=== PATIENT | male | born 1975 | race Caucasian/White ===

== ENCOUNTER → 2019-12-15 | Outpatient (CLI) | payer MEDICAID ==
[~2019-12-15] MED LIST: CEPH500C PO; HEARTBURN MED; HYDR-3583 PO; MPR22TI TP
== END ==
LOC: LAB 13:18
PROVIDERS: ATTEND Nurse Practitioner
DX: Z11.3 Encounter for screening for infections with a predominantly sexual mode of transmission (principal); Z53.8 Procedure and treatment not carried out for other reasons

== ENCOUNTER 2021-12-12 08:42 | Observation (INO) | payer MEDICAID ==
[~2021-12-12] VITALS: Ht 185 cm; Wt 95.0 kg
[2021-12-12] MEDS ORDERED: NALOXONE 2 MG/2 ML (NARCAN) SYR IV ONE ×2 (08:44→09:15)
--- NOTE | 2021-12-12 09:13 | ED General ---
General Stated Complaint: UNRESPONSIVE Source of Information: EMS Exam Limitations: Intoxication History of Present Illness Date Seen by Provider: Dec 12, 2021 Time Seen by Provider: 08:55 Initial Comments Patient is a 46-year-old male who presents to the emergency room by EMS chief complaint unresponsiveness. Reportedly girlfriend woke to find him sitting by the bed unresponsive, sonorous breath sounds. She was throwing water on him and could not get him to wake up. EMS responded, gave him 4 mg of Narcan, he had improvement in his respiratory effort but no improvement in mental status. It was difficult to get an IV therefore an IO was placed to the left tibia. Patient did respond to this noxious stimulus with sitting up and eyes opening but quickly became poorly responsive again with slow respiratory effort. No outward signs of trauma, pupils are 2-3 and reactive. Patient maintained on nasal cannula with a nasal trumpet in place sats 99%. Review of systems unobtainable secondary to the patient's unresponsive state Timing/Duration: 1 Hour Severity: Severe Allergies and Home Medications Allergies Coded Allergies: morphine (Unverified Allergy, Intermediate, itching, 06/26/11) Patient Home Medication List Home Medication List Reviewed: Yes Cephalexin Monohydrate (Cephalexin) 500 Mg Capsule, 1 EACH PO TID, (Reported) Entered as Reported by: KATHI MEDINA on 06/29/11 161 Hydrocodone Bit/Acetaminophen (Lortab 5 Mg) 1 Tab Tab, 1-2 EA PO Q4HR PRN, (Reported) Entered as Reported by: KATHI MEDINA on 06/29/11 1614 Mupirocin (Mupirocin Ointment) 22 Gm Tube, 0 TP DAILY, (Reported) Entered as Reported by: KATHI MEDINA on 06/29/11 1614 [Heartburn Med] , (Reported) Entered as Reported by: ROBERTH PAZ on 06/24/11 1712 Review of Systems Review of Systems Constitutional: see HPI Unable to obtain secondary to patient's unresponsive state All Other Systems Reviewed Negative Unless Noted: Yes Past Tituxsf-Jhekyj-Jxvdvi Hx Past Medical History Reproductive Disorders: No Physical Exam Vital Signs Vital Signs - First Documented 12/12/21 08:49 Temp 34.4 Pulse 92 Resp 10 B/P (MAP) 116/92 (100) Pulse Ox 96 O2 Delivery Nasal Cannula O2 Flow Rate 4.00 Capillary Refill : Height, Weight, BMI Height: '" Weight: lbs. oz. kg; BMI Method: General Appearance: Other (unresponisive) Eyes: Bilateral Eye Other (Roving gaze when I open his eyelids bilaterally right pupil is very minimally smaller than the left they are about 2 mm. Equally responsive) HEENT: TMs Normal, Other (Nasal trumpet in place left nare) Neck: Normal Inspection Respiratory: Lungs Clear, Normal Breath Sounds, No Accessory Muscle Use, No Respiratory Distress Cardiovascular: Regular Rate, Rhythm, Normal Peripheral Pulses Gastrointestinal: Soft, Other (Nondistended) Extremity: Normal Inspection, No Pedal Edema Neurologic/Psychiatric: Other (Unresponsive but does grimace and try to pull away to deep pain) Skin: Normal Color, Warm/Dry, Tattoos/Piercings (multiple tattoos) Focused Exam Lactate Level 12/12/21 11:30: Lactic Acid Level Laboratory Tests Test 12/12/21 11:30 Progress/Results/Core Measures Suspected Sepsis SIRS Temperature: Pulse: Respiratory Rate: Laboratory Tests 12/12/21 09:25: White Blood Count 17.1H Blood Pressure / Mean: 12/12/21 11:30: Laboratory Tests 12/12/21 09:25: Creatinine 2.33H, INR Comment 1.0, Platelet Count 302, Total Bilirubin 1.3H Results/Orders Lab Results Laboratory Tests Test 12/12/21 09:10 12/12/21 09:25 12/12/21 11:30 12/12/21 11:36 Range/Units Urine Opiates Screen NEGATIVE NEGATIVE Urine Oxycodone Screen NEGATIVE NEGATIVE Urine Methadone Screen NEGATIVE NEGATIVE Urine Propoxyphene Screen NEGATIVE NEGATIVE Urine Barbiturates Screen NEGATIVE NEGATIVE Ur Tricyclic Antidepressants Screen NEGATIVE NEGATIVE Urine Phencyclidine Screen NEGATIVE NEGATIVE Urine Amphetamines Screen POSITIVE H NEGATIVE Urine Methamphetamines Screen POSITIVE H NEGATIVE Urine Benzodiazepines Screen NEGATIVE NEGATIVE Urine Cocaine Screen NEGATIVE NEGATIVE Urine Cannabinoids Screen NEGATIVE NEGATIVE White Blood Count 17.1 H 4.3-11.0 10^3/uL Red Blood Count 5.88 H 4.30-5.52 10^6/uL Hemoglobin 15.5 13.3-17.7 g/dL Hematocrit 50 40-54 % Mean Corpuscular Volume 85 80-99 fL Mean Corpuscular Hemoglobin 26 25-34 pg Mean Corpuscular Hemoglobin Concent 31 L 32-36 g/dL Red Cell Distribution Width 14.6 H 10.0-14.5 % Platelet Count 302 130-400 10^3/uL Mean Platelet Volume 9.3 9.0-12.2 fL Immature Granulocyte % (Auto) 1 % Neutrophils (%) (Auto) 87 H 42-75 % Lymphocytes (%) (Auto) 5 L 12-44 % Monocytes (%) (Auto) 7 0-12 % Eosinophils (%) (Auto) 0 0-10 % Basophils (%) (Auto) 0 0-10 % Neutrophils # (Auto) 14.8 H 1.8-7.8 10^3/uL Lymphocytes # (Auto) 0.9 L 1.0-4.0 10^3/uL Monocytes # (Auto) 1.1 H 0.0-1.0 10^3/uL Eosinophils # (Auto) 0.1 0.0-0.3 10^3/uL Basophils # (Auto) 0.0 0.0-0.1 10^3/uL Immature Granulocyte # (Auto) 0.2 H 0.0-0.1 10^3/uL Neutrophils % (Manual) 88 % Lymphocytes % (Manual) 7 % Monocytes % (Manual) 3 % Band Neutrophils 2 % Blood Morphology Comment NORMAL Prothrombin Time 13.1 12.2-14.7 SEC INR Comment 1.0 0.8-1.4 Activated Partial Thromboplast Time 24 24-35 SEC Sodium Level 140 135-145 MMOL/L Potassium Level 4.0 3.6-5.0 MMOL/L Chloride Level 101 98-107 MMOL/L Carbon Dioxide Level 27 21-32 MMOL/L Anion Gap 12 5-14 MMOL/L Blood Urea Nitrogen 18 7-18 MG/DL Creatinine 2.33 H 0.60-1.30 MG/DL Estimat Glomerular Filtration Rate 34 BUN/Creatinine Ratio 8 Glucose Level 105 70-105 MG/DL Calcium Level 9.7 8.5-10.1 MG/DL Corrected Calcium 9.7 8.5-10.1 MG/DL Total Bilirubin 1.3 H 0.1-1.0 MG/DL Aspartate Amino Transf (AST/SGOT) 663 H 5-34 U/L Alanine Aminotransferase (ALT/SGPT) 545 H 0-55 U/L Alkaline Phosphatase 80 40-136 U/L Total Protein 6.9 6.4-8.2 GM/DL Albumin 4.0 3.2-4.5 GM/DL Salicylates Level < 5.0 L 5.0-20.0 MG/DL Acetaminophen Level < 10 L 10-30 UG/ML Serum Alcohol < 10 <10 MG/DL My Orders Orders - LAURA GIRARD MD Ed Iv/Invasive Line Start (12/12/21 09:07) Cbc With Automated Diff (12/12/21 09:07) Comprehensive Metabolic Panel (12/12/21 09:07) Salicylate (12/12/21 09:07) Acetaminophen (12/12/21 09:07) Alcohol (12/12/21 09:07) Drug Screen Stat (Urine) (12/12/21 09:07) Ekg Tracing (12/12/21 09:07) Chest 1 View, Ap/Pa Only (12/12/21 09:07) Ct Head Wo (12/12/21 09:07) Naloxone Injection (Narcan Injection) (12/12/21 09:15) Ns Iv 1000 Ml (Sodium Chloride 0.9%) (12/12/21 09:15) Manual Differential (12/12/21 09:25) Ns Iv 1000 Ml (Sodium Chloride 0.9%) (12/12/21 10:00) Lactated Ringers (Lr 1000 Ml Iv Solution (12/12/21 10:15) Partial Thromboplastin Time (12/12/21 11:19) Protime With Inr (12/12/21 11:19) Ammonia (12/12/21 11:19) Blood Culture (12/12/21 11:19) Lactic Acid Analyzer (12/12/21 11:19) Ed Admission (Communication) (12/12/21 11:29) Arterial Blood Gas (12/12/21 11:37) Medications Given in ED Current Medications Medications Dose Ordered Sig/Curtis Route Start Time Stop Time Status Last Admin Dose Admin Naloxone HCl 4 mg ONCE ONCE IV 12/12/21 09:15 12/12/21 09:16 DC 12/12/21 09:10 4 MG Vital Signs/I&O 12/12/21 12/12/21 08:49 09:25 Temp 34.4 Pulse 92 Resp 10 B/P (MAP) 116/92 (100) Pulse Ox 96 99 O2 Delivery Nasal Cannula Nasal Cannula O2 Flow Rate 4.00 4.00 Capillary Refill : Progress Note #1: Time: 11:28 Progress Note Discussed with Dr. Martines, advised him that some work-up is still pending including blood cultures, lactic, coags blood gas and ammonia level. Will admit to the ICU for monitoring. Progress Note #2: Time: 11:45 Progress Note A resin mixer called to inquire about the status of Mr Taveras and wanted to inform us that he may be shortly under investigation for fentanyl laced drugs. This could explain his unresponsive state, however, he is not positive for opiates at this time. Patient remains stable - 93% on #L per NC. Good BP, not tachy. Bear hugger on to help with temp. Rouses to vigorous stimuli. will briefly open eyes. has not been verbal. seems to maybe localize painful stimuli. not just withdraw from. ECG Initial ECG Impression Date: Dec 12, 2021 Initial ECG Impression Time: 08:48 Initial ECG Rate: 90 Initial ECG Rhythm: Normal Sinus Initial ECG Intervals NC interval 121 QRS 100 QTc 470 RSR prime in leads V1/V2, consider right bundle branch block. No ST segment elevation or depression or ectopy is noted Initial ECG Impression: Normal Diagnostic Imaging Diagonstic Imaging: Xray Plain Films/CT/US/NM/MRI: chest Comments [facility] [place], [place] NAME: YUAN TAVERAS [facility] REC#: [id number] PT STATUS: REG ER : 1975 PHYSICIAN: LAURA GIRARD MD ADMIT DATE: 12/12/21/ER Draft Date of Exam:12/12/21 CHEST 1 VIEW, AP/PA ONLY INDICATION: Overdose. TIME OF EXAM: 10:01 AM Correlation is made with prior chest 06/25/2011. FINDINGS: Heart size is stable. The lungs are clear. No infiltrates are seen. There is no effusion or pneumothorax. IMPRESSION: No acute cardiopulmonary process is detected. Dictated on workstation # [id number] Dict: 12/12/21 1012 Trans: 12/12/21 1014 [id number] Interpreted by: WENDY BARRERA MD Electronically signed by: Jolly Imaging: CT Plain Films/CT/US/NM/MRI: head Comments [facility] [place] [place] NAME: YUAN TAVERAS [facility] REC#: [id number] PT STATUS: REG ER : 1975 PHYSICIAN: LAURA GIRARD MD ADMIT DATE: 12/12/21/ER Signed Date of Exam:12/12/21 CT HEAD WO PROCEDURE: CT head without contrast. TECHNIQUE: Multiple contiguous axial images were obtained through the brain without the use of intravenous contrast. Auto Exposure Controls were utilized during the CT exam to meet ALARA standards for radiation dose reduction. INDICATION: Unresponsiveness. COMPARISON: 06/24/2011. FINDINGS: The ventricles and sulci are within normal limits. There is no hydrocephalus. There is no midline shift. There is no mass, hemorrhage, or extra-axial fluid collection. The calvarium is intact. There is some mucosal thickening in the right maxillary sinus. The remaining sinuses and mastoid air cells are clear. IMPRESSION: No acute intracranial abnormality. Mild right maxillary sinus disease. Dictated by: Dictated on workstation # [id number] Dict: 12/12/21 1043 Trans: 12/12/21 1058 [id number] Interpreted by: EH SOSA MD Electronically signed by: EH SOSA MD 12/12/21 1058 Departure Communication (Admissions) Time/Spoke to Admitting Phy: 11:[address] Martines Impression Primary Impression: Unresponsive state Additional Impression: Methamphetamine intoxication Disposition: ADMITTED INPATIENT Condition: Stable Admissions Decision to Admit Reason: Admit from ER (General) Decision to Admit/Date: Dec 12, 2021 Time/Decision to Admit Time: 11:28 Departure-Patient Inst. Referrals: NO,LOCAL PHYSICIAN (PCP/Family) Primary Care Physician LAURA GIRARD MD Dec 12, 2021 09:13
[2021-12-12] MEDS ORDERED: NS IV 1000 ML 1,000 ML IV SCH ×2 (09:15→10:00)
[2021-12-12 09:39] LABS: BASOPHILS % (AUTO) 0 % (0-10); EOSINOPHILS # (AUTO) 0.1 10^3/uL (0.0-0.3); EOSINOPHILS % (AUTO) 0 % (0-10); HEMATOCRIT 50 % (40-54); HEMOGLOBIN 15.5 g/dL (13.3-17.7); LYMPHOCYTES # (AUTO) 0.9 10^3/uL (1.0-4.0); LYMPHOCYTES % (AUTO) 5 % (12-44); MEAN CORPUSCULAR HEMOGLOBIN 26 pg (25-34); MEAN CORPUSCULAR HGB CONC 31 g/dL (32-36); MEAN CORPUSCULAR VOLUME 85 fL (80-99); MEAN PLATELET VOLUME 9.3 fL (9.0-12.2); MONOCYTES # (AUTO) 1.1 10^3/uL (0.0-1.0); MONOCYTES % (AUTO) 7 % (0-12); NEUTROPHILS # (AUTO) 14.8 10^3/uL (1.8-7.8); NEUTROPHILS % (AUTO) 87 % (42-75); PLATELET COUNT 302 10^3/uL (130-400); WHITE BLOOD COUNT 17.1 10^3/uL (4.3-11.0)
[2021-12-12 09:39] LABS: AMPHETAMINE SCREEN, URINE POSITIVE (NEGATIVE); BENZODIAZEPINES SCREEN URINE NEGATIVE (NEGATIVE); COCAINE SCREEN URINE NEGATIVE (NEGATIVE); METHAMPHETAMINE SCREEN URINE S POSITIVE (NEGATIVE)
[2021-12-12 09:40] LABS: BARBITURATE SCREEN URINE NEGATIVE (NEGATIVE); CANNABINOID SCREEN, URINE NEGATIVE (NEGATIVE); METHADONE STAT NEGATIVE (NEGATIVE); OPIATE SCREEN URINE NEGATIVE (NEGATIVE); OXYCODONE STAT NEGATIVE (NEGATIVE); PROPOXYPHENE STAT NEGATIVE (NEGATIVE); TRICYCLIC ANTIDEPRESSANTS SCRE NEGATIVE (NEGATIVE)
[2021-12-12 09:45] LABS: CHLORIDE 101 MMOL/L (98-107); SODIUM 140 MMOL/L (135-145)
[2021-12-12 09:46] LABS: CALCIUM 9.7 MG/DL (8.5-10.1)
[2021-12-12 09:48] LABS: GLUCOSE 105 MG/DL (70-105); TOTAL PROTEIN 6.9 GM/DL (6.4-8.2)
[2021-12-12 09:49] LABS: BILIRUBIN,TOTAL 1.3 MG/DL (0.1-1.0); CARBON DIOXIDE 27 MMOL/L (21-32)
[2021-12-12 09:51] LABS: ALKALINE PHOSPHATASE 80 U/L (40-136); CREATININE SERUM 2.33 MG/DL (0.60-1.30); GFR ESTIMATED 34
[2021-12-12 09:53] LABS: ACETAMINOPHEN < 10 UG/ML (10-30); BUN/CREATININE RATIO 8
[2021-12-12 09:54] LABS: SALICYLATE < 5.0 MG/DL (5.0-20.0)
[2021-12-12 09:55] LABS: ALANINE AMINOTRANSFERASE 545 U/L (0-55)
[2021-12-12 10:07] LABS: BAND NEUTROPHILS 2 %; LYMPHOCYTES % (MANUAL) 7 %; MONOCYTES % (MANUAL) 3 %; NEUTROPHILS % (MANUAL) 88 %; RBC MORPH NORMAL
[2021-12-12] MEDS ORDERED: LACTATED RINGERS 1,000 ML IV SCH (10:15)
--- NOTE | 2021-12-12 10:15 | Diagnostic Imaging Report ---
INDICATION: Overdose. TIME OF EXAM: 10:01 AM Correlation is made with prior chest 06/25/2011. FINDINGS: Heart size is stable. The lungs are clear. No infiltrates are seen. There is no effusion or pneumothorax. IMPRESSION: No acute cardiopulmonary process is detected. Dictated by: Dictated on workstation # [id number]
--- NOTE | 2021-12-12 10:46 | Diagnostic Imaging Report ---
PROCEDURE: CT head without contrast. TECHNIQUE: Multiple contiguous axial images were obtained through the brain without the use of intravenous contrast. Auto Exposure Controls were utilized during the CT exam to meet ALARA standards for radiation dose reduction. INDICATION: Unresponsiveness. COMPARISON: 06/24/2011. FINDINGS: The ventricles and sulci are within normal limits. There is no hydrocephalus. There is no midline shift. There is no mass, hemorrhage, or extra-axial fluid collection. The calvarium is intact. There is some mucosal thickening in the right maxillary sinus. The remaining sinuses and mastoid air cells are clear. IMPRESSION: No acute intracranial abnormality. Mild right maxillary sinus disease. Dictated by: Dictated on workstation # [id number]
[2021-12-12 11:34] LABS: PROTHROMBIN TIME PATIENT 13.1 SEC (12.2-14.7)
[2021-12-12 11:43] LABS: ABG BASE EXCESS 1.5 MMOL/L (-2.5-2.5); ABG OXYGEN SATURATION 95 % (94-100); ABG PCO2 55 MMHG (35-45); ABG PO2 82 MMHG (79-93)
[2021-12-12 11:48] LABS: ABG PH 7.31 (7.37-7.43); ALLENS TEST YES-POS; INSPIRED O2 3 L; PATIENT TEMP 97; VENTILATOR NO
[2021-12-12] MEDS ORDERED: NALOXONE 0.4 MG/ML 1 ML (NARCAN) VIAL ONE (12:20)
[2021-12-12] MEDS ORDERED: NALOXONE 2 MG/2 ML (NARCAN) SYR ONE (12:22)
[2021-12-12] MEDS ORDERED: LORazepam INJ 2 MG/ML (ATIVAN) VIAL IVP PRN (15:00)
[2021-12-12] MEDS ORDERED: ONDANSETRON 4 MG/2 ML (SDV) Z0FRAN IVP PRN (15:00)
[2021-12-12] MEDS ORDERED: HALOPERIDOL 5 MG/ML (HALDOL) VIAL IM PRN (15:00)
[2021-12-12] MEDS: LACTATED RINGERS 1,000 ML IV SCH ×2 (15:30→23:20)
[2021-12-12 15:34] VITALS: BP 119/84
[2021-12-12] MEDS ORDERED: RT-ALBUTEROL SULF 2.5 MG/3 ML PRE-MIX VIAL INH PRN (15:45)
[2021-12-12] MEDS ORDERED: SUCR1TAB36 PO (15:47)
--- NOTE | 2021-12-12 17:38 | Tele-ICU Consult ---
History of Present Illness History of Present Illness Date Seen by Provider: Dec 12, 2021 Time Seen by Provider: 17:32 Date of Admission 12/12/21 History of Present Illness He is a 46-year-old male with unknown past medical history was apparently found unresponsive by his girlfriend with a sonorous breathing sounds. EMS was called and they gave him Narcan 4 mg IV with minimal improvement initially and no significant mental status improvement. Apparently it was a difficult to get an IV axis hence an IO was placed in the left anterior at which time with this noxious stimuli he was sitting up on the ice opening but quickly became fully responsive. However his respiratory status is stable. His urine toxicology positive for amphetamines and methamphetamines. He is admitted to the intensive care unit for close monitoring. His creatinine is elevated. He is being given IV fluids. There is no external evidence of for trauma present. Reportedly his pupils were about 2-3 mm and reactive. I have reviewed with the LONG TERM CARE PHARMACIST and also made a video visit. Apparently when he is arousable he answers questions appropriately but falls back quickly to sleep. Allergies and Home Medications Allergies Coded Allergies: morphine (Unverified Allergy, Intermediate, itching, 06/26/11) Home Medications Cephalexin Monohydrate 500 Mg Capsule, 1 EACH PO TID, (Reported) Hydrocodone Bit/Acetaminophen 1 Tab Tab, 1-2 EA PO Q4HR PRN, (Reported) Mupirocin 22 Gm Tube, 0 TP DAILY, (Reported) APPLY TO AFFECTED AREA(S) Sucralfate 1 Gm Tablet, 1 GM PO DAILY, (Reported) Past Medical/Social/Family Hx Patient Social History Tobacco Use?: No Smoking Status: Unknown if Ever Smoked Use of E-Cig and/or Vaping dev: Yes E-Cig and/or Vaping Freq: Current Someday User, Light User Substance use?: Yes Substance type: Amphetamines, Methamphetamine Alcohol Use?: Yes Alcohol type: Hard Liquor Alcohol Frequency: Couple times a week Pt stated abuse/neglect: Unable to obtain Immunizations Up To Date Influenza Vaccine Up-to-Date: No; Not Current Current Status Advance Directives: No Communicates: Verbally Primary Language: Iraqi Preferred Spoken Language: Iraqi Is interpretation needed?: No Review of Systems Constitutional: see HPI Other ROS PER RN Focused Exam Lactate Level 12/12/21 11:30: Lactic Acid Level 0.80 Height, Weight, BMI Height: '" Weight: lbs. oz. kg; 27.52 BMI Method: Exam Exam Patient acknowledged, consented, and participated in this virtual visit which was conducted using real time audio/video Vital Signs Date Time Temp Pulse Resp B/P (MAP) Pulse Ox O2 Delivery O2 Flow Rate FiO2 12/12/21 17:00 89 15 125/82 94 Nasal Cannula 3.00 12/12/21 16:00 14 114/76 96 Nasal Cannula 3.00 12/12/21 15:45 35.7 12/12/21 15:41 Nasal Cannula 4.00 12/12/21 15:34 34.4 87 94 12/12/21 15:00 84 12 125/84 96 Nasal Cannula 3.00 12/12/21 14:47 87 12/12/21 14:28 86 14 119/84 94 Nasal Cannula 3.00 12/12/21 09:25 99 Nasal Cannula 4.00 12/12/21 08:49 34.4 92 10 116/92 (100) 96 Nasal Cannula 4.00 Height & Weight Height: '" Weight: lbs. oz. kg; 27.52 BMI Method: General Appearance: Other (unresponisive) HEENT: TMs Normal, Other (Nasal trumpet in place left nare) Neck: Normal Inspection Respiratory: Lungs Clear, Normal Breath Sounds, No Accessory Muscle Use, No Respiratory Distress Cardiovascular: Regular Rate, Rhythm, Normal Peripheral Pulses Capillary Refill: Less Than 3 Seconds Extremity: Normal Inspection, No Pedal Edema Neurologic/Psychiatric: Other (Unresponsive but does grimace and try to pull away to deep pain) Skin: Normal Color, Warm/Dry, Tattoos/Piercings (multiple tattoos) Other comments PE PER RN Results Lab Laboratory Tests 12/12/21 09:25 Assessment/Plan Assessment/Plan 1. Altered mental status most probably due to amphetamines and methamphetamine overdose. 2. Acute kidney injury due to dehydration. 3. Rule out any rhabdomyolysis. Recommendations 1. Continue IV fluids with LR 2. We will get a CPK level 3. Continue to monitor his mental status, BUN/creatinine. 4. CT head is negative. 5. DVT prophylaxis and ulcer prophylaxis. Critical Care: Critically Ill Patient Time spent with patient (mins): 30 KYREE BARTLETT MD Dec 12, 2021 17:38
[2021-12-12] MEDS ORDERED: ENOXAPARIN 40 MG/0.4 ML (LOVENOX) SYR SC SCH (17:45)
--- NOTE | 2021-12-12 21:22 | History & Physical-Hospitalist ---
History of Present Illness HPI/Chief Complaint Rufus Taveras is a 46 year old male who presented with altered mental status. His girlfriend found him unresponsive at home. He was unable to provide any history upon arrival. He was given Narcan with minimal response. Upon my exam, he is awake and alert. He does not remember how he ended up in the hospital. He reports that he has been in his normal state of health. He denies chest pain and shortness of breath. He has no complaints. Source: patient Exam Limitations: no limitations Date Seen 12/12/21 Time Seen by a Provider: 19:30 Attending Physician Mikala Rahman MD PCP No,Local Physician Referring Physician Date of Admission Dec 12, 2021 at 11:29 Home Medications & Allergies Home Medications Reviewed patient Home Medication Reconciliation performed by pharmacy medication reconciliations heating repair technician and/or nursing. Patients Allergies have been reviewed. Allergies Allergies Coded Allergies morphine (Unverified Allergy, Intermediate, itching, 06/26/11) Past Iptbpvt-Axsdia-Reptqg Hx Patient Social History Tobacco Use?: No Smoking Status: Unknown if Ever Smoked Use of E-Cig and/or Vaping dev: Yes Use of E-Cig and/or Vaping Primitivo: Current Someday User, Light User Substance use?: Yes Substance type: Amphetamines, Methamphetamine Alcohol Use?: Yes Alcohol type: Hard Liquor Alcohol Frequency: Couple times a week Pt feels they are or have been: Unable to obtain Current Status Advance Directives: No Communicates: Verbally Primary Language: Tanzanian Preferred Spoken Language: Tanzanian Is interpretation needed?: No Family Medical History No Pertinent Family Hx Review of Systems Constitutional: see HPI Physical Exam Physical Exam Vital Signs Vital Signs - First Documented 12/12/21 08:49 Temp 34.4 Pulse 92 Resp 10 B/P (MAP) 116/92 (100) Pulse Ox 96 O2 Delivery Nasal Cannula O2 Flow Rate 4.00 Capillary Refill : Less Than 3 Seconds Height, Weight, BMI Height: '" Weight: lbs. oz. kg; 27.52 BMI Method: General Appearance: No Apparent Distress, WD/WN HEENT: PERRL/EOMI, Pharynx Normal Neck: Normal Inspection, Supple Respiratory: Lungs Clear, No Respiratory Distress Cardiovascular: Regular Rate, Rhythm, No Murmur Gastrointestinal: Normal Bowel Sounds, Non Tender, Soft Extremity: Normal Inspection, No Pedal Edema Neurologic/Psychiatric: Alert, No Motor/Sensory Deficits Skin: Normal Color, Warm/Dry Results Results/Procedures Labs Laboratory Tests 12/12/21 09:25 Patient resulted labs reviewed. Imaging: Reviewed Imaging Report Assessment/Plan Admission Diagnosis Altered mental status Admission Status: Observation Assessment and Plan Altered mental status Acute methamphetamine intoxication WILBUR vs CKD CT negative Infectious workup negative Tox positive for methamphetamine/amphetamine IV fluids Monitor Diagnosis/Problems Diagnosis/Problems (1) Altered mental status Status: Acute (2) Methamphetamine intoxication Status: Acute (3) WILBUR (acute kidney injury) Status: Acute MIKALA RAHMAN MD Dec 12, 2021 21:21
[2021-12-13] MEDS: LACTATED RINGERS 1,000 ML IV SCH ×2 (07:08→07:40)
[2021-12-13] MEDS ORDERED: PANTOPRAZOLE 40 MG (PROTONIX) VIAL IV SCH (09:00)
[2021-12-13 09:32] LABS: BASOPHILS % (AUTO) 0 % (0-10); EOSINOPHILS # (AUTO) 0.3 10^3/uL (0.0-0.3); EOSINOPHILS % (AUTO) 2 % (0-10); HEMATOCRIT 44 % (40-54); LYMPHOCYTES # (AUTO) 1.8 10^3/uL (1.0-4.0); LYMPHOCYTES % (AUTO) 12 % (12-44); MEAN CORPUSCULAR HEMOGLOBIN 27 pg (25-34); MEAN CORPUSCULAR HGB CONC 32 g/dL (32-36); MEAN CORPUSCULAR VOLUME 85 fL (80-99); MEAN PLATELET VOLUME 9.5 fL (9.0-12.2); MONOCYTES # (AUTO) 0.9 10^3/uL (0.0-1.0); MONOCYTES % (AUTO) 6 % (0-12); NEUTROPHILS # (AUTO) 11.7 10^3/uL (1.8-7.8); NEUTROPHILS % (AUTO) 79 % (42-75); PLATELET COUNT 219 10^3/uL (130-400); WHITE BLOOD COUNT 14.8 10^3/uL (4.3-11.0)
[2021-12-13 09:40] LABS: ALBUMIN 3.3 GM/DL (3.2-4.5); POTASSIUM 3.6 MMOL/L (3.6-5.0)
[2021-12-13 09:41] LABS: CALCIUM 8.9 MG/DL (8.5-10.1)
[2021-12-13 09:42] LABS: TOTAL PROTEIN 5.5 GM/DL (6.4-8.2)
[2021-12-13 09:44] LABS: BILIRUBIN,TOTAL 2.1 MG/DL (0.1-1.0)
[2021-12-13 09:45] LABS: PHOSPHORUS 2.7 MG/DL (2.3-4.7)
[2021-12-13 09:46] LABS: CREATININE SERUM 1.49 MG/DL (0.60-1.30)
[2021-12-13 09:49] LABS: MAGNESIUM 1.9 MG/DL (1.6-2.4)
[2021-12-13 10:05] LABS: BAND NEUTROPHILS 4 %; BASOPHILS % (MANUAL) 0 %; EOSINOPHILS % (MANUAL) 0 %; LYMPHOCYTES % (MANUAL) 9 %; MONOCYTES % (MANUAL) 6 %; NEUTROPHILS % (MANUAL) 81 %; RBC MORPH NORMAL
--- NOTE | 2021-12-13 10:55 | Discharge Summary ---
Discharge Summary Hospital Course Problems/Dx: (1) Altered mental status Status: Acute (2) Methamphetamine intoxication Status: Acute (3) WILBUR (acute kidney injury) Status: Acute (4) Elevated LFTs Status: Acute Hospital Course Date of Admission: Dec 12, 2021 at 11:29 Admission Diagnosis : Altered mental status Family Physician/Provider: CieloLocal Physician Date of Discharge: 12/13/21 Discharge Diagnosis: Acute methamphetamine intoxication Hospital Course: Rufus Taveras is a 46 year old male [facility] patient with PMH HTN, GERD, methamphetamine abuse, who presented with unresponsiveness and was admitted with acute methamphetamine intoxication. He improved quickly after overnight monitoring and IV fluid resuscitation. His course was complicated by WILBUR on likely CKD. His liver enzymes were elevated but improved significantly prior to discharge. He reports that he last used methamphetamine yesterday and was smoking it. He was recommended to discontinue use completely. He was discharged home in stable condition. He should follow up with his PCP at [facility] in about a week. Labs and Pending Lab Test: Laboratory Tests 12/12/21 11:30: Lactic Acid Level 0.80, Ammonia 26, Total Creatine Kinase 690H 12/12/21 11:36: Blood Gas Puncture Site LT RAD, Blood Gas Patient Temperature 97, Arterial Blood pH 7.31*L, Arterial Blood Partial Pressure CO2 55H, Arterial Blood Partial Pressure O2 82, Arterial Blood HCO3 27, Arterial Blood Total CO2 29.0, Arterial Blood Oxygen Saturation 95, Arterial Blood Base Excess 1.5, Domingo Test YES-POS, Blood Gas Ventilator Setting NO, Blood Gas Inspired Oxygen 3 L 12/13/21 09:05: Total Creatine Kinase 527H, White Blood Count 14.8H, Red Blood Count 5.19, Hemoglobin 14.0, Hematocrit 44, Mean Corpuscular Volume 85, Mean Corpuscular Hemoglobin 27, Mean Corpuscular Hemoglobin Concent 32, Red Cell Distribution Width 14.7H, Platelet Count 219, Mean Platelet Volume 9.5, Immature Granulocyte % (Auto) 1, Neutrophils (%) (Auto) 79H, Lymphocytes (%) (Auto) 12, Monocytes (%) (Auto) 6, Eosinophils (%) (Auto) 2, Basophils (%) (Auto) 0, Neutrophils # (Auto) 11.7H, Lymphocytes # (Auto) 1.8, Monocytes # (Auto) 0.9, Eosinophils # (Auto) 0.3, Basophils # (Auto) 0.0, Immature Granulocyte # (Auto) 0.1, Neutrophils % (Manual) 81, Lymphocytes % (Manual) 9, Monocytes % (Manual) 6, Eosinophils % (Manual) 0, Basophils % (Manual) 0, Band Neutrophils 4, Blood Morphology Comment NORMAL, Sodium Level 134L, Potassium Level 3.6, Chloride Level 99, Carbon Dioxide Level 28, Anion Gap 7, Blood Urea Nitrogen 19H, Creatinine 1.49H, Es timat Glomerular Filtration Rate 58, BUN/Creatinine Ratio 13, Glucose Level 107H , Calcium Level 8.9, Corrected Calcium 9.5, Phosphorus Level 2.7, Magnesium Level 1.9, Total Bilirubin 2.1H, Aspartate Amino Transf (AST/SGOT) 109H, Alanine Aminotransferase (ALT/SGPT) 266H, Alkaline Phosphatase 60, Total Protein 5.5L, Albumin 3.3 Home Meds Active Reported Carafate (Sucralfate) 1 Gm Tablet 1 Gm PO DAILY Mupirocin Ointment (Mupirocin) 22 Gm Tube 0 TP DAILY APPLY TO AFFECTED AREA(S) Cephalexin (Cephalexin Monohydrate) 500 Mg Capsule 1 Each PO TID Lortab 5 Mg (Acetaminophen/Hydrocodone Bitart) 1 Tab Tab 1-2 Ea PO Q4HR PRN [Heartburn Med] Assessment/Pt Instructions Take medications as prescribed. Stop using methamphetamine. Follow up with your PCP. Return with worsening confusion, weakness, or if you feel like you are getting worse. Discharge Planning: <30 minutes discharge planning Discharge Instructions Discharge Diet: No Restrictions Activity as Tolerated: Yes Consultations TeleICU Discharge Physical Examination Vital Signs Vital Signs Date Time Temp Pulse Resp B/P (MAP) Pulse Ox O2 Delivery O2 Flow Rate FiO2 12/13/21 10:00 80 12 110/79 98 Nasal Cannula 3.00 12/13/21 07:45 36.3 General Appearance: No Apparent Distress, WD/WN HEENT: PERRL/EOMI, Pharynx Normal Respiratory: Lungs Clear, Normal Breath Sounds, No Respiratory Distress Cardiovascular: Regular Rate, Rhythm, No Edema, No Murmur Gastrointestinal: Normal Bowel Sounds, Non Tender, Soft Extremity: Normal Inspection, No Pedal Edema Skin: Normal Color, Warm/Dry Neurologic/Psychiatric: Alert, No Motor/Sensory Deficits Allergies: Coded Allergies: morphine (Unverified Allergy, Intermediate, itching, 06/26/11) Copy Copies To 1: [facility] Discharge Summary Date of Admission Dec 12, 2021 at 11:29 Date of Discharge Discharge Date: Dec 13, 2021 Discharge Time: 10:50 Admission Diagnosis Altered mental status Consults/Procedures Consulations TeleICU Discharge Diagnosis Acute methamphetamine intoxication WILBUR on CKD Elevated LFTs (1) Altered mental status Status: Acute (2) Methamphetamine intoxication Status: Acute (3) WILBUR (acute kidney injury) Status: Acute (4) Elevated LFTs Status: Acute MIKALA RAHMAN MD Dec 13, 2021 10:54
== END 2021-12-13 11:30 | disposition home or self-care (01) ==
LOC: EDUNIT# 08:42 → ER 08:43 → ICU 11:29
PROVIDERS: ADMIT Internal Medicine; ATTEND Internal Medicine
DX: F15.129 Other stimulant abuse with intoxication, unspecified (principal); R41.82 Altered mental status, unspecified; N17.9 Acute kidney failure, unspecified
CPT/HCPCS: 36680; 51702; 70450; 71045; 80053 ×2; 80306; 82140; 82550 ×2; 82805; 82947; 83605; 83735; 84100; 85007 ×2; 85027 ×2; 85610; 85730; 87040; 87081; 93005; 99291; G0480 ×3; 36415; 80320; 80329

== ENCOUNTER 2022-10-15 14:56 | Emergency (ER) | payer MEDICAID ==
[~2022-10-15] VITALS: Ht 185.5 cm; Wt 102.0 kg
[~2022-10-15 14:56] MED LIST changes: +SUCR1TAB36 PO
--- NOTE | 2022-10-15 15:18 | ED General ---
General Chief Complaint: Cough/Cold/Flu Symptoms Stated Complaint: SOB Nursing Triage Note: PT AMB TO ED BY POV WITH C/O SOB. PT TESTED POSITIVE FOR FLU ON AT [facility]. PT HAS HAD COUGH, CONGESTION, N/V, DECREASED APPETITE SINCE WEDNESDAY. DENIES CP. PT HAS HAD INCREASED SOB SINCE . Source of Information: Patient Exam Limitations: No Limitations History of Present Illness Date Seen by Provider: Oct 15, 2022 Time Seen by Provider: 15:03 Initial Comments Here with complaint of worsening shortness of breath over the last few days. States he started feeling bad on 09 October, 2 days before Dennis. Was seen at [facility] earlier this week on Wednesday and had influenza swab that was noted to be positive. He was sent home. He has been using albuterol inhaler occasionally at home and states it is helping a little bit but remarks that the shortness of breath is getting much worse. Despite being 6 days along in the course of this illness, he is not getting better and in fact feels like he is getting much worse. Arrives short of breath with O2 sat at 92 to 93% with tachypnea. He is able to answer questions and speak in full sentences. Does not smoke but did state for a few months this year but has quit that. Otherwise quit smoking 20 years ago. No known lung history. He is not vaccinated for COVID or influenza and states he had COVID infection last year. Timing/Duration: 6-7 Days, Getting Worse Severity: Moderate Modifying Factors: improves with Rest Associated Systoms: No Chest Pain; Cough, Fever/Chills, Loss of Appetite; No Nausea/Vomiting; Shortness of Air, Weakness Allergies and Home Medications Allergies Coded Allergies: morphine (Unverified Allergy, Intermediate, itching, 06/26/11) Patient Home Medication List Home Medication List Reviewed: Yes Sucralfate (Carafate) 1 Gm Tablet, 1 GM PO DAILY, (Reported) Entered as Reported by: LEENA REDDING on 12/12/21 154 [Heartburn Med] , (Reported) Entered as Reported by: ROBERTH PAZ on 06/24/11 1712 Review of Systems Review of Systems Constitutional: chills, fever EENTM: nose congestion, throat pain Respiratory: cough, short of breath, wheezing Cardiovascular: no symptoms reported Gastrointestinal: loss of appetite; No nausea, No vomiting Genitourinary: no symptoms reported Musculoskeletal: No back pain, No muscle pain Skin: no symptoms reported Psychiatric/Neurological: No Symptoms Reported All Other Systems Reviewed Negative Unless Noted: Yes Past Njulioo-Zxrffg-Xzfdiv Hx Patient Social History Tobacco Use?: No Smoking Status: Former Smoker Use of E-Cig and/or Vaping dev: No Substance use?: No Alcohol Use?: No Pt feels they are or have been: No Immunizations Up To Date Influenza Vaccine Up-to-Date: No; Not Current Past Medical History Surgery/Hospitalization HX: HTN, GERD, ULCERS, HIATAL HERNIA Surgeries: Yes Tonsillectomy Respiratory: No Cardiac: Yes Hypertension Reproductive Disorders: No Genitourinary: No Gastrointestinal: Yes Gastroesophageal Reflux, Hiatal Hernia, Ulcer Musculoskeletal: No Endocrine: No Psychosocial: Yes Depression Family Medical History Reviewed Nursing Family Hx No Pertinent Family Hx Physical Exam-Suspected Sepsis Physical Exam Vital Signs Vital Signs - First Documented 10/15/22 10/15/22 15:00 15:10 Temp 37.1 Pulse 127 Resp 24 B/P (MAP) 137/87 (104) Pulse Ox 93 O2 Delivery Room Air O2 Flow Rate 22.00 Capillary Refill : Less Than 3 Seconds Blood Pressure Mean: 104 Height, Weight, BMI Height: '" Weight: lbs. oz. kg; 29.00 BMI Method: General Appearance: WD/WN, Mild Distress HEENT: PERRL/EOMI, Pharyngeal Erythema, Other (Dry mucous membranes) Neck: Full Range of Motion, Normal Inspection, Non Tender, Supple Respiratory: Crackles; No Wheezing Cardiovascular: No Murmur, Tachycardia Gastrointestinal: Non Tender, Soft Back: Normal Inspection, No CVA Tenderness, No Vertebral Tenderness Extremity: Normal Range of Motion, Non Tender Neurologic/Psychiatric: Alert, Oriented x3 Skin: normal color, warm/dry Focused Exam Lactate Level 10/15/22 15:13: Lactic Acid Level 1.56 Lactic Acid Level Progress/Results/Core Measures Suspected Sepsis SIRS Temperature: Pulse: 127 Respiratory Rate: 24 Laboratory Tests 10/15/22 15:13: White Blood Count 15.8H Blood Pressure 137 /87 Mean: 104 10/15/22 15:13: Lactic Acid Level 1.56 Laboratory Tests 10/15/22 15:13: Creatinine 5.83H, INR Comment 1.1, Platelet Count 315, Total Bilirubin 0.8 Results/Orders Lab Results Laboratory Tests Test 10/15/22 15:13 10/15/22 19:21 Range/Units White Blood Count 15.8 H 4.3-11.0 10^3/uL Red Blood Count 5.17 4.30-5.52 10^6/uL Hemoglobin 13.0 L 13.3-17.7 g/dL Hematocrit 37 L 40-54 % Mean Corpuscular Volume 72 L 80-99 fL Mean Corpuscular Hemoglobin 25 25-34 pg Mean Corpuscular Hemoglobin Concent 35 32-36 g/dL Red Cell Distribution Width 15.7 H 10.0-14.5 % Platelet Count 315 130-400 10^3/uL Mean Platelet Volume 9.9 9.0-12.2 fL Immature Granulocyte % (Auto) 0 % Neutrophils (%) (Auto) 82 H 42-75 % Lymphocytes (%) (Auto) 5 L 12-44 % Monocytes (%) (Auto) 12 0-12 % Eosinophils (%) (Auto) 0 0-10 % Basophils (%) (Auto) 0 0-10 % Neutrophils # (Auto) 13.0 H 1.8-7.8 X 10^3 Lymphocytes # (Auto) 0.9 L 1.0-4.0 X 10^3 Monocytes # (Auto) 1.8 H 0.0-1.0 X 10^3 Eosinophils # (Auto) 0.0 0.0-0.3 10^3/uL Basophils # (Auto) 0.0 0.0-0.1 10^3/uL Immature Granulocyte # (Auto) 0.1 0.0-0.1 10^3/uL Neutrophils % (Manual) 80 % Lymphocytes % (Manual) 8 % Monocytes % (Manual) 8 % Band Neutrophils 4 % Microcytosis SLIGHT Prothrombin Time 14.4 12.2-14.7 SEC INR Comment 1.1 0.8-1.4 Activated Partial Thromboplast Time 25 24-35 SEC Sodium Level 129 L 135-145 MMOL/L Potassium Level 4.3 3.6-5.0 MMOL/L Chloride Level 93 L 98-107 MMOL/L Carbon Dioxide Level 23 21-32 MMOL/L Anion Gap 13 5-14 MMOL/L Blood Urea Nitrogen 64 H 7-18 MG/DL Creatinine 5.83 H 0.60-1.30 MG/DL Estimat Glomerular Filtration Rate 11 BUN/Creatinine Ratio 11 Glucose Level 196 H 70-105 MG/DL Lactic Acid Level 1.56 0.50-2.00 MMOL/L Calcium Level 8.8 8.5-10.1 MG/DL Corrected Calcium 9.4 8.5-10.1 MG/DL Total Bilirubin 0.8 0.1-1.0 MG/DL Aspartate Amino Transf (AST/SGOT) 175 H 5-34 U/L Alanine Aminotransferase (ALT/SGPT) 137 H 0-55 U/L Alkaline Phosphatase 75 40-136 U/L Total Protein 7.0 6.4-8.2 GM/DL Albumin 3.3 3.2-4.5 GM/DL Urine Color ORANGE Urine Clarity SL CLOUDY Urine pH 5.5 5-9 Urine Specific Junction >=1.030 1.016-1.022 Urine Protein 1+ H NEGATIVE Urine Glucose (UA) NEGATIVE NEGATIVE Urine Ketones NEGATIVE NEGATIVE Urine Nitrite NEGATIVE NEGATIVE Urine Bilirubin NEGATIVE NEGATIVE Urine Urobilinogen 1.0 < = 1.0 MG/DL Urine Leukocyte Esterase NEGATIVE NEGATIVE Urine RBC (Auto) 1+ H NEGATIVE Urine RBC 0-2 /HPF Urine WBC 2-5 /HPF Urine Squamous Epithelial Cells 2-5 /HPF Urine Crystals NONE /LPF Urine Bacteria LARGE H /HPF Urine Casts NONE /LPF Urine Mucus NEGATIVE /LPF Urine Culture Indicated CULTURE PENDING Micro Results Microbiology 10/15/22 Urine Culture - Final, Complete NO GROWTH 10/15/22 Blood Culture - Preliminary, Resulted No growth 10/15/22 Blood Culture - Preliminary, Resulted No growth My Orders Orders - RODRICK CASPER MD Cbc With Automated Diff (10/15/22 15:12) Comprehensive Metabolic Panel (10/15/22 15:12) Blood Culture (10/15/22 15:12) Urinalysis (10/15/22 15:12) Urine Culture (10/15/22 15:12) Protime With Inr (10/15/22 15:12) Partial Thromboplastin Time (10/15/22 15:12) Chest 1 View, Ap/Pa Only (10/15/22 15:12) Ed Iv/Invasive Line Start (10/15/22 15:12) Vital Signs Adult Sepsis Patie Q15M (10/15/22 15:12) O2 (10/15/22 15:12) Remove Rings In Anticipation O (10/15/22 15:12) Lactic Acid Analyzer (10/15/22 15:12) Ns Iv 1000 Ml (Sodium Chloride 0.9%) (10/15/22 15:22) Manual Differential (10/15/22 15:13) Ns Iv 1000 Ml (Sodium Chloride 0.9%) (10/15/22 15:45) Ns Iv 1000 Ml (Sodium Chloride 0.9%) (10/15/22 15:35) Albuterol Inhaler (Albuterol) (10/15/22 18:00) Albuterol Inhaler (Albuterol) (10/15/22 18:00) Ns Iv 1000 Ml (Sodium Chloride 0.9%) (10/15/22 17:50) General/Regular (10/15/22 Dinner) Medications Given in ED Vital Signs/I&O 10/16/22 00:00 Intake Total 2000 ml Balance 2000 ml Capillary Refill : Less Than 3 Seconds 2 Blood Pressure Mean: 104 Progress Note : Progress Note Seen and evaluated. Patient is day 6 of influenza with positive test 2 days ago. He has worsening shortness of breath. Given these concerns, we will initiate sepsis protocol including IV, CBC, CMP, chest x-ray, blood culture, lactic acid and initiate normal saline 2 L IV bolus. Patient placed on oxygen as his O2 sats were in the low 90s and he was quite tachypneic. Monitor patient. 1713: Patient was noted to be in acute renal failure with creatinine of 5.8. This is markedly elevated from previous of 1.49-2.2 range earlier this year. Patient has not required dialysis and has never had renal dysfunction of this level in our chart. I did discuss that with our hospitalist team and due to no nephrology here, they are requesting transfer to facility with nephrology. Patient has requested [facility] in [facility]. I did call them and they had no beds available currently and do have a wait list. I then called [facility] in [facility] and they have similar situation. Given that patient's request is [facility] and we have limited EMS transfer capability, we will try to stay local. I did call back [facility] and spoke with fauzia Reneepidamian at 1725. She has graciously excepted the patient for transfer when bed is available. They are thinking sometime early tomorrow morning hopefully. We will hold patient in the ED until then. We will continue the fluid bolus for the first 2 L as ordered above and then we will continue fluids of normal saline at 125 mL an hour and the hospitalist agrees. All findings and concerns discussed with patient and family who agree with plan. Patient will be moved to hospital bed in his room. Albuterol therapy via metered-dose inhaler and spacer ordered. Overall patient is doing better now with heart rate of 106 and blood pressure 119/75 with O2 sat 94%. Monitor patient. Diagnostic Imaging Diagonstic Imaging: Xray Plain Films/CT/US/NM/MRI: chest Comments [facility], [place] NAME: [facility] REC#: [id number] PT STATUS: REG ER : 1975 PHYSICIAN: RODRICK CASPER MD ADMIT DATE: 10/15/22/ER Draft Date of Exam:10/15/22 CHEST 1 VIEW, AP/PA ONLY INDICATION: Influenza, cough, congestion, decreased appetite. FINDINGS: The lungs are clear. Heart size is within normal limits. No failure, effusion, or pneumothorax. Chronic bony chest wall changes, stable from exam of 12/12/2021. IMPRESSION: No findings of pneumonia, failure, or acute pleural pathology. Dictated on workstation # [id number] Dict: 10/15/22 1544 Trans: 10/15/22 1548 [id number] Interpreted by: XIN WHITE Electronically signed by: Departure Impression Primary Impression: Acute on chronic renal failure Qualified Codes: N17.9 - Acute kidney failure, unspecified; N18.9 - Chronic kidney disease, unspecified Additional Impression: Influenza A Disposition: XF SHT-TRM HOSP Condition: Stable Transfer Transfer Reason: Exceeds level of care Time Spoke to Accepting Phy: 17:34 Transfer Time: 21:36 Transfer Facility: [facility], Dr. Butler accepting Method of Transfer: EMS Departure-Patient Inst. Referrals: NO,LOCAL PHYSICIAN (PCP/Family) Primary Care Physician RODRICK CASPER MD Oct 15, 2022 15:18
[2022-10-15] MEDS ORDERED: NS IV 1000 ML 1,000 ML ONE (15:22)
[2022-10-15 15:24] LABS: BASOPHILS % (AUTO) 0 % (0-10); EOSINOPHILS % (AUTO) 0 % (0-10); HEMATOCRIT 37 % (40-54); LYMPHOCYTES # (AUTO) 0.9 X 10^3 (1.0-4.0); LYMPHOCYTES % (AUTO) 5 % (12-44); MEAN CORPUSCULAR HEMOGLOBIN 25 pg (25-34); MEAN CORPUSCULAR HGB CONC 35 g/dL (32-36); MEAN CORPUSCULAR VOLUME 72 fL (80-99); MEAN PLATELET VOLUME 9.9 fL (9.0-12.2); MONOCYTES # (AUTO) 1.8 X 10^3 (0.0-1.0); MONOCYTES % (AUTO) 12 % (0-12); NEUTROPHILS % (AUTO) 82 % (42-75); PLATELET COUNT 315 10^3/uL (130-400); WHITE BLOOD COUNT 15.8 10^3/uL (4.3-11.0)
[2022-10-15] MEDS ORDERED: NS IV 1000 ML 1,000 ML IV STA ×2 (15:35→17:50)
[2022-10-15 15:38] LABS: ALBUMIN 3.3 GM/DL (3.2-4.5)
[2022-10-15 15:39] LABS: POTASSIUM 4.3 MMOL/L (3.6-5.0)
[2022-10-15 15:40] LABS: CALCIUM 8.8 MG/DL (8.5-10.1)
[2022-10-15 15:43] LABS: BILIRUBIN,TOTAL 0.8 MG/DL (0.1-1.0)
[2022-10-15 15:45] LABS: CREATININE SERUM 5.83 MG/DL (0.60-1.30)
[2022-10-15] MEDS ORDERED: NS IV 1000 ML 1,000 ML IV ONE (15:45)
[2022-10-15 15:47] LABS: BAND NEUTROPHILS 4 %; LYMPHOCYTES % (MANUAL) 8 %; MICROCYTOSIS SLIGHT; MONOCYTES % (MANUAL) 8 %; NEUTROPHILS % (MANUAL) 80 %
--- NOTE | 2022-10-15 15:49 | Diagnostic Imaging Report ---
INDICATION: Influenza, cough, congestion, decreased appetite. FINDINGS: The lungs are clear. Heart size is within normal limits. No failure, effusion, or pneumothorax. Chronic bony chest wall changes, stable from exam of 12/12/2021. IMPRESSION: No findings of pneumonia, failure, or acute pleural pathology. Dictated by: Dictated on workstation # [id number]
[2022-10-15 16:01] LABS: INR 1.1 (0.8-1.4); PROTHROMBIN TIME PATIENT 14.4 SEC (12.2-14.7)
[2022-10-15] MEDS ORDERED: RT-ALBUTEROL HFA 8.5 GM INHALER IH PRN (18:00)
[2022-10-15] MEDS: RT-ALBUTEROL HFA 8.5 GM INHALER IH SCH ×2 (18:20→21:58)
[2022-10-15 19:26] LABS: BILIRUBIN,URINE NEGATIVE (NEGATIVE); CLARITY,URINE SL CLOUDY; COLOR,URINE ORANGE; GLUCOSE, URINE (UA) NEGATIVE (NEGATIVE); KETONES,URINE NEGATIVE (NEGATIVE); LEUKOCYTE ESTERASE ,URINE NEGATIVE (NEGATIVE); NITRITE,URINE NEGATIVE (NEGATIVE); PH,URINE 5.5 (5-9); PROTEIN,URINE 1+ (NEGATIVE)
[2022-10-15 19:42] LABS: BACTERIA,URINE LARGE /HPF; RBC,URINE 0-2 /HPF
[2022-10-15 22:01] VITALS: BP 123/100
== END 2022-10-15 22:08 | disposition short-term general hospital (02) ==
LOC: EDUNIT# 14:56 → ER 14:58
DX: I12.9 Hypertensive chronic kidney disease with stage 1 through stage 4 chronic kidney disease, or unspecified chronic kidney disease (principal); N17.9 Acute kidney failure, unspecified; N18.9 Chronic kidney disease, unspecified; J10.1 Influenza due to other identified influenza virus with other respiratory manifestations; Z87.891 Personal history of nicotine dependence; Z28.310 Unvaccinated for COVID-19
CPT/HCPCS: 36415; 71045; 80053; 81000; 83605; 85007; 85027; 85610; 85730; 87040; 87088

== ENCOUNTER → 2022-11-03 | Outpatient (CLI) | payer MEDICAID ==
[2022-11-03 13:22] LABS: HEMATOCRIT 45 % (40-54); HEMOGLOBIN 14.7 g/dL (13.3-17.7); MEAN CORPUSCULAR HEMOGLOBIN 25 pg (25-34); MEAN CORPUSCULAR HGB CONC 33 g/dL (32-36); MEAN CORPUSCULAR VOLUME 78 fL (80-99); MEAN PLATELET VOLUME 9.4 fL (9.0-12.2); PLATELET COUNT 327 10^3/uL (130-400)
[2022-11-03 13:23] LABS: BILIRUBIN,URINE NEGATIVE (NEGATIVE); CLARITY,URINE CLEAR; COLOR,URINE YELLOW; GLUCOSE, URINE (UA) NEGATIVE (NEGATIVE); KETONES,URINE NEGATIVE (NEGATIVE); LEUKOCYTE ESTERASE ,URINE 1+ (NEGATIVE); NITRITE,URINE NEGATIVE (NEGATIVE); PH,URINE 6.5 (5-9); PROTEIN,URINE NEGATIVE (NEGATIVE)
[2022-11-03 13:31] LABS: BACTERIA,URINE TRACE /HPF; RBC,URINE RARE /HPF; SQUAMOUS EPITHELIAL CELL,UR RARE /HPF; WBC,URINE 0-2 /HPF
[2022-11-03 13:43] LABS: CALCIUM 9.5 MG/DL (8.5-10.1); CREATININE SERUM 1.41 MG/DL (0.60-1.30); PHOSPHORUS 2.5 MG/DL (2.3-4.7); POTASSIUM 4.3 MMOL/L (3.6-5.0)
== END ==
LOC: LAB 12:40
PROVIDERS: ATTEND Internal Medicine Nephrology
DX: N17.9 Acute kidney failure, unspecified (principal)
CPT/HCPCS: 36415; 80069; 81000; 82570; 84156; 85027

== ENCOUNTER → 2023-02-23 | Outpatient (CLI) | payer MEDICAID ==
[2023-02-23 10:58] LABS: HEMATOCRIT 44 % (40-54); HEMOGLOBIN 14.7 g/dL (13.3-17.7); MEAN CORPUSCULAR HEMOGLOBIN 28 pg (25-34); MEAN CORPUSCULAR HGB CONC 33 g/dL (32-36); MEAN CORPUSCULAR VOLUME 83 fL (80-99); MEAN PLATELET VOLUME 9.7 fL (9.0-12.2); PLATELET COUNT 215 10^3/uL (130-400); WHITE BLOOD COUNT 6.5 10^3/uL (4.3-11.0)
[2023-02-23 11:27] LABS: ALBUMIN 4.1 GM/DL (3.2-4.5); CALCIUM 9.2 MG/DL (8.5-10.1); CREATININE SERUM 1.13 MG/DL (0.60-1.30); POTASSIUM 4.3 MMOL/L (3.6-5.0); URIC ACID 7.8 MG/DL (2.6-7.2)
== END ==
LOC: LAB 10:21
PROVIDERS: ATTEND Internal Medicine Nephrology
DX: N17.1 Acute kidney failure with acute cortical necrosis (principal); I10 Essential (primary) hypertension; E83.9 Disorder of mineral metabolism, unspecified
CPT/HCPCS: 36415; 80061; 80069; 82306; 82570; 83036; 83970; 84156; 84550; 85027